=== PATIENT | female | born 1995 | race Caucasian/White ===

== ENCOUNTER 2017-07-28 14:33 | Emergency (ER) | payer OTHER, SELFPAY ==
[2017-07-28 14:34] VITALS: BP 135/81; PULSE 81; RESP 16; TEMP 36.8; O2SAT 100; BMI 23.2
[2017-07-28] MEDS: Metoclopramide 10 MG Tablet PO (16:08)
[2017-07-28 16:15] LABS: Color, Urine Yellow (Yellow); Glucose, Dipstick Normal (Normal); Leukocyte Esterase-Dipstick 25 /ul (Negative); Nitrite-Dipstick Negative (Negative); Occult Blood-Urine 10 /ul (Negative); Protein-Dipstick Negative (Negative); Urine Bilirubin Dipstick Negative (Negative); Urine Clarity Sl. Cloudy (Clear); Urine Urobilinogen Normal (Normal)
[2017-07-28 16:22] LABS: Ketone-Dipstick 150 mg/dl (Negative)
[2017-07-28 16:36] LABS: Bacteria RARE /hpf (None Seen); Mucous, Urine 2+ /hpf (<or=2+); Red Blood Cells-Urine 0-5 SEEN /hpf (0-5); Squamous Epithelial Cells - UA 0-5 SEEN /hpf (5-10); White Blood Cells 0-5 SEEN /hpf (0-5)
--- NOTE | 2017-07-28 17:11 | ED.DCSUM_ITS ---
- ER Visit Summary Date of Service: 07/28/17 Chief Complaint: Nausea and vomiting History of Present Illness: The patient is a 21 F presenting for evaluation secondary to nausea and vomiting patient states this been going on over the course approximately last 4 days. Patient states that she has been having difficulty with keeping food or liquids down. She does endorse some crampy abdominal pain and some subjective fevers. She denies any diarrhea. Of note the patient is early in . She denies any vaginal bleeding discharge or pelvic pain. She is . She has a appointment with OB tomorrow. Physical Examination: Vital signs are within normal limits, patient is afebrile. General: Patient is well-nourished well-developed and in no acute distress. Head: Normocephalic, atraumatic Eyes: Pupils equal round and reactive bilaterally, extra occular motion intact bialterally ENT: Moist mucous membranes Neck: Supple, no lymphadenopathy, no JVD, no meningismus CVS: Heart regular rate and rhythm, no murmurs, rubs or gallops, radial pulses 2 + bilaterally Resp: Respirations nondistressed, lung sounds clear bilaterally Abdomen: Soft, nontender, nondistended, no palpable masses, normal bowel sounds Back: Nontender Extremities: Nontender, atraumatic, active full range of motion, no peripheral edema Skin: warm, no rashes, no petechia Neuro: Alert and oriented x 4, CN 2-12 intact, no lateralizing neurological defecits Psyc: Normal affect Test Results: Urinalysis does show small ketones but no evidence of infection Emergency Department Course and Treatment: Patient presented secondary to nausea and vomiting and . She is not tachycardic, she has moist mucous membranes, she has normal blood pressure. Urinalysis while it shows mild ketones, I do not believe the patient is an hyperemesis at this point. Patient was given Reglan and a p.o. challenge. She will be discharged with a course of Reglan. She will follow-up with OB tomorrow. Disposition: Discharge Impression: 1. Nausea and vomiting 2. First trimester This note was generated with [employer] dictation software. It may contain incorrect words, spelling, and punctuation that were not noted in review of the chart prior to signing ED Disposition - Plan for ED Patient: Disposition: Home or Assisted Living Chief Complaint: Nausea/Vomiting Diagnosis: Nausea & vomiting Instructions: ED Nausea Vomiting Prescriptions: Metoclopramide [Reglan] 10 mg PO 4X/DAY PRN #20 tab PRN Reason: Headache Referrals: Manasa Collazo MD [STAFF PHYSICIAN] - 1 Day
[2017-07-28 17:16] VITALS: BP 130/70; PULSE 88; RESP 18; O2SAT 98
== END 2017-07-28 17:17 | disposition home or self-care (01) ==
PROVIDERS: Emergency Provider Emergency Medicine
DX: O21.9 Vomiting of pregnancy, unspecified (principal); Z3A.00 Weeks of gestation of pregnancy not specified
CPT/HCPCS: 81001; 99282

== ENCOUNTER → 2017-07-29 20:25 | Outpatient (CLI) | payer OTHER, SELFPAY ==
[2017-07-29 22:57] LABS: Chlamydia Trachomatis by PCR Negative (Negative); Neisserai gonorrhoeae by PCR Negative (Negative); Probe Check PASS; Sample Adequacy Control PASS; Specimen Processing Control PASS
[2017-08-03 11:34] LABS: HPV Reflexed? NOT INDICATED
== END ==
PROVIDERS: Visit Provider Obstetrics & Gynecology
DX: Z12.4 Encounter for screening for malignant neoplasm of cervix (principal); Z11.3 Encounter for screening for infections with a predominantly sexual mode of transmission
CPT/HCPCS: 87491; 87591; 88175; G0145

== ENCOUNTER → 2017-08-06 15:11 | Outpatient (CLI) | payer OTHER, SELFPAY ==
[2017-08-06 17:40] LABS: Absolute Lymphocyte Count 2.59 X10^3/ul (0.83-4.51); Absolute Neutrophil Count 6.8 X10^3/uL (2.0-7.7); Basophil# 0.02 X10^3/uL; Basophil% 0.2 % (0-1); Eosinophil# 0.05 X10^3/uL; Eosinophils% 0.5 % (0-5); Hemoglobin 11.6 g/dl (12.0-15.0); Lymphocyte # 2.59 X10^3/ul (4.0); Lymphocyte % 25.4 % (19-41); Mean Corp Hgb Conc 35.2 g/gl (32-36); Mean Corpuscular Hgb 30.1 pg (27.0-32.0); Mean Corpuscular Volume 85.7 fL (81-99); Mean Platelet Vol. 10.8 fl (6.2-12.0); Monocyte# 0.72 X10^3/uL; Monocyte% 7.1 % (0-10); Neutrophil % 66.6 % (47-70); Platelet Count 292 K/mm3 (150-450); RBC Distribution Width SD 36.2 fl (35.1-43.9); Red Blood Count 3.85 M/mm3 (4.2-5.4); White Blood Count 10.2 K/mm3 (4.4-11.0)
[2017-08-06 17:41] LABS: POSITIVE COUNT NO; POSITIVE DIFFERENTIAL NO; POSITIVE MORPHOLOGY NO
[2017-08-06 17:55] LABS: Color, Urine Yellow (Yellow); Glucose, Dipstick Normal (Normal); Ketone-Dipstick Negative (Negative); Leukocyte Esterase-Dipstick 100 /ul (Negative); Nitrite-Dipstick Negative (Negative); Occult Blood-Urine 10 /ul (Negative); Protein-Dipstick 15 mg/dl (Negative); Specific Gravity, Urine 1.015 (1.002-1.030); Urine Bilirubin Dipstick Negative (Negative); Urine Clarity Sl. Cloudy (Clear); Urine Urobilinogen Normal (Normal)
[2017-08-06 17:58] LABS: Thyroid Stim Hormone (TSH) 1.79 uIU/mL (0.358-3.74)
[2017-08-06 18:10] LABS: Amphetamine Urine VISTA NEGATIVE (<1000 ng/mL); Barbiturate Urine VISTA NEGATIVE (< 200 ng/mL); Benzodiazepine Urine VISTA NEGATIVE (< 200 ng/mL); Cocaine Urine VISTA NEGATIVE (< 300 ng/mL); Ecstacy Urine VISTA NEGATIVE (< 500 ng/mL); Methadone Urine VISTA NEGATIVE (< 300 ng/mL); PCP Urine VISTA NEGATIVE (< 25 ng/mL); THC Urine VISTA NEGATIVE (< 50 ng/mL); Vista UDS pH Range 6
[2017-08-07 02:55] LABS: Prenatal RPR NONREACTIVE (NONREACTIVE)
[2017-08-07 09:35] LABS: HIV - WCH Non-Reactive (Nonreactive); Rubella IgG 9.1 IU/mL
[2017-08-08 08:59] LABS: HEPATITIS B SURFACE AG Negative (Negative); Hep C Antibodies <0.1 s/co ratio (0.0-0.9)
== END ==
PROVIDERS: Visit Provider Obstetrics & Gynecology
DX: Z34.81 Encounter for supervision of other normal pregnancy, first trimester (principal)
CPT/HCPCS: 36415; 80307; 81002; 84443; 85025; 86703; 86762; 86803; 87340

== ENCOUNTER → 2017-12-22 16:17 | Outpatient (CLI) | payer OTHER, SELFPAY ==
[2017-12-22 17:47] LABS: Glucose Challenge Gest 1H 50g 106 mg/dL (70-140)
[2017-12-22 18:00] LABS: Hematocrit 29.3 % (37-47); Mean Corp Hgb Conc 34.1 g/gl (32-36); Mean Corpuscular Hgb 30.3 pg (27.0-32.0); Mean Corpuscular Volume 88.8 fL (81-99); Mean Platelet Vol. 10.6 fl (6.2-12.0); Platelet Count 326 K/mm3 (150-450); RBC Distribution Width CV 12.3 % (11.6-14.6); RBC Distribution Width SD 38.5 fl (35.1-43.9); White Blood Count 10.1 K/mm3 (4.4-11.0)
[2017-12-22 18:19] LABS: Scan Indicated on CBC? Y/N NO
== END ==
PROVIDERS: Visit Provider Obstetrics & Gynecology
DX: Z34.83 Encounter for supervision of other normal pregnancy, third trimester (principal)
CPT/HCPCS: 36415; 82950; 85027

== ENCOUNTER → 2018-02-23 20:38 | Outpatient (CLI) | payer OTHER, SELFPAY ==
[2018-02-23 22:03] LABS: Group B Strep DNA By PCR Negative (Negative); Internal Control PASS; Probe Check PASS; Specimen Processing Control PASS
== END ==
PROVIDERS: Visit Provider Obstetrics & Gynecology
DX: Z36.85 Encounter for antenatal screening for Streptococcus B (principal)
CPT/HCPCS: 87081; 87653

== ENCOUNTER 2018-03-14 02:45 | Inpatient (IN) | payer OTHER, MEDICAID, SELFPAY ==
[2018-03-14] MEDS: Lactated Ringers 1,000 ML 50 ML IV ×2 (03:15→05:58)
[2018-03-14 03:37] LABS: Hematocrit 38.9 % (37-47); Hemoglobin 13.2 g/dl (12.0-15.0); Mean Corp Hgb Conc 33.9 g/gl (32-36); Mean Corpuscular Hgb 30.3 pg (27.0-32.0); Mean Corpuscular Volume 89.2 fL (81-99); Mean Platelet Vol. 11.6 fl (6.2-12.0); Platelet Count 207 K/mm3 (150-450); RBC Distribution Width CV 13.3 % (11.6-14.6); RBC Distribution Width SD 43.4 fl (35.1-43.9); Red Blood Count 4.36 M/mm3 (4.2-5.4); White Blood Count 14.5 K/mm3 (4.4-11.0)
[2018-03-14 03:38] LABS: Scan Indicated on CBC? Y/N NO
[2018-03-14 03:43] VITALS: BMI 26.4
[2018-03-14] MEDS: Ondansetron 4 MG/2 ML Vial IV (03:56)
--- NOTE | 2018-03-14 07:23 | PCM.PN.OB ---
Subjective: Using nitrous oxide for pain management. Feeling contractions and pelvic pressure. Objective: Afeb VSS FHR tracing CAT 1. - Physical Exam General: Alert, Oriented x3, Cooperative, No apparent distress Lungs: Clear to auscultation, Normal air movement Cardiovascular: Regular rate, Regular Rhythm Abdomen: Soft, Non Tender, Non-Distended, Gravid, Appropriate for Gestational Age Extremities: No edema, No Calf Tenderness Skin: No rashes Neurological: Neuro grossly intact Psych/Mental Status: Normal Affect Comment: CE anterior rim 0 station Weight: 140 lb 3.2 oz Body Mass Index (BMI) 26.4 Laboratory Tests Past 24 Hrs 03/14/18 03/14/18 03:15 03:15 WBC 14.5 H RBC 4.36 Hgb 13.2 Hct 38.9 MCV 89.2 MCH 30.3 MCHC 33.9 RDW 13.3 RDW Differential 43.4 Plt Count 207 MPV 11.6 Blood Type A POSITIVE Antibody Screen NEGATIVE Medical Necessity - Tobacco Use Smoking Status: Never smoker Assessment/Plan AROM perfomred with clear fluid present. Will start pushing efforts. Expect .
[2018-03-14] MEDS: Oxytocin 30 units/NS 500 ml 30 UNITS/500 ML IV.SOLN 334 UNITS IV (07:40)
--- NOTE | 2018-03-14 07:48 | PCM.OB.VAG ---
- Problem List (1) Active labor Status: Acute Vaginal Delivery Maternal Presentation: Active Labor Presents at 39w3d ega in early active labor with uncomplicated . Amniotic Membrane Rupture Type: Artificial Rupture of Membrane time: 719 Amniotic Fluid Description: Clear Final SRINIVASAN: 03/18/18 Final SRINIVASAN Source: US <20 weeks Gestational age: 39 Weeks and 3 Days Date of Procedure: 03/14/18 Pre-Operative Diagnosis: Labor Post-Operative Diagnosis: same Surgery/ Procedure Performed: Spontaneous Vaginal Delivery Type of Anesthesia: None Description of Procedure: Progressed to FD then after AROM pushed over about 5 minutes to deliver a live male without complication. Apgars were 8/9. At delivery there was an active cry within the first 30 seconds. The mouth was suctioned. Delayed cord clamping was employed. The cord was clamped and cut. The placenta was delivered spontaneously intact with a centrally located 3VC. The uterus contracted well. Inspection revealed a small right periurethral first degree tear and a small posterior vaginal/perineal tear. Each were repaired with figure of eight sutures of 3-0 Rapide suture. Presentation: Vertex Placental Delivery Description: Spontaneous Placenta Disposition: [facility] Percentage of Placenta Abruption: 0 Cord Vessel Description: 3 Vessels Nuchal Cord Compression: Without compression Cord Entanglement: None Estimated Blood Loss: 300cc A gender: Male (1 minute): 8 (5 minute): 9 Episiotomy Description: None Laceration: Midline, Perineal Extension/lac, Vaginal Extension/lac, 1st degree Medications given after delivery: IV Pitocin Complications: None
--- NOTE | 2018-03-14 07:57 | DCINST_ITS ---
Discharge Diet: No Restrictions Discharge Activity: Return to Normal Activity, May Drive, May Shower Return to work on:: 05/14/18 May shower in (days): 0 May resume sexual activity in: 4 weeks Call your doctor if your incision/area has: Sudden Increased Bleeding, Increased Pain/ Swelling, Foul Smelling Discharge Call your doctor if you observe: Fever of 101 or Higher, Inability to urinate, Inability to have a bowel movement, Using more than one pad per hour, Shortness of breath, Chest pain, Calf discomfort, Uncontrolled pain Cleanse incision/area with: Soap & Water Additional Instructions: If you experience any of the following, contact your healthcare provider. * Bleeding that soaks a pad every hour for 2 hours * Fever 100.4 or higher * Unrelieved incision or abdominal pain * Swelling, redness, discharge or bleeding from your incision or episiotomy site * Your incision begins to separate * Problems urinating (including inability to urinate or burning while urinating). * Visual changes * Severe headache * Flu-like symptoms * Pain or redness in one of both of your breasts * Pain, warmth, tenderness or swelling in your legs, especially the calf area * Frequent nausea and vomiting * Symptoms of depression or anxiety If you experience any of the following, call 911 or go to the nearest Emergency Room. * Chest pain * Problems breathing * Seizure activity * Partial or complete paralysis of a body part, slurred speech, weakness or drooping of the face, or a sudden inability to walk or hold your balance Allergies/Adverse Reactions: Allergies No Known Allergies Allergy (Verified 03/14/18 00:39) Medications to take at Discharge Ferrous Sulfate [Iron] 1 tab PO DAILY 03/14/18 Ibuprofen 600 mg PO 4X/DAY #30 tab 03/14/18 Vits [Prenatabs FA ] 1 tab PO DAILY 03/14/18 The following prescriptions were given: Ibuprofen 600 mg PO 4X/DAY #30 tab Please Follow Up With: Manasa Collazo MD When: 6 weeks Primary Care Physician: Care Physician,No Primary [Primary Care Provider] - Test Results: Test results from this visit will be discussed in further detail at your follow- up appointment, if applicable. Proposed Discharge Date: 03/16/18
[2018-03-14] MEDS: Oxytocin 30 units/NS 500 ml 30 UNITS/500 ML IV.SOLN 167 UNITS IV (08:15)
[2018-03-14] MEDS: Ferrous Sulfate 325 MG Tablet PO (11:59)
[2018-03-14] MEDS: Ibuprofen 600 MG Tablet PO (11:59)
[2018-03-14 12:00] VITALS: BP 120/80; PULSE 90; RESP 16; TEMP 36.9
[2018-03-14 16:45] VITALS: BP 129/57; PULSE 70; RESP 16; TEMP 36.3
[2018-03-14 20:10] VITALS: BP 121/61; PULSE 80; RESP 18; TEMP 36.6; O2SAT 99
[2018-03-15 01:00] VITALS: BP 140/83; PULSE 80; RESP 16; TEMP 36.4
[2018-03-15 05:05] VITALS: BP 125/71; PULSE 74; RESP 16; TEMP 36.6
[2018-03-15 05:09] LABS: Hematocrit 36.7 % (37-47); Hemoglobin 12.4 g/dl (12.0-15.0); Mean Corp Hgb Conc 33.8 g/gl (32-36); Mean Corpuscular Hgb 30.7 pg (27.0-32.0); Mean Corpuscular Volume 90.8 fL (81-99); Mean Platelet Vol. 11.3 fl (6.2-12.0); Platelet Count 202 K/mm3 (150-450); RBC Distribution Width CV 13.5 % (11.6-14.6); RBC Distribution Width SD 44.8 fl (35.1-43.9); Red Blood Count 4.04 M/mm3 (4.2-5.4); White Blood Count 13.4 K/mm3 (4.4-11.0)
[2018-03-15 05:12] LABS: Scan Indicated on CBC? Y/N NO
--- NOTE | 2018-03-15 07:38 | PCM.PN.OB ---
Patient Problems: Active and Suspected Problems Active labor (Acute) Subjective: PPD#1 Doing well. Minimal pain. Nursing better now. Would like to go home later today if baby is ok for dischg. - Physical Exam General: Alert, Oriented x3, Cooperative, No apparent distress HEENT: Atraumatic Neck: Supple Abdomen: Soft - Fundus firm NT at approx 1-2 cm inf to umbilicus Neurological: Cranial nerves II-XII grossly intact Psych/Mental Status: Normal Affect Vital Signs Temp Pulse Resp BP Pulse Ox 97.8 F 74 16 125/71 H 99 03/15/18 05:05 03/15/18 05:05 03/15/18 05:05 03/15/18 05:05 03/14/18 20:10 Oxygen Delivery Method Room Air Weight: 63.594 kg Body Mass Index (BMI) 26.4 Laboratory Tests Past 24 Hrs 03/15/18 04:50 WBC 13.4 H RBC 4.04 L Hgb 12.4 Hct 36.7 L MCV 90.8 MCH 30.7 MCHC 33.8 RDW 13.5 RDW Differential 44.8 H Plt Count 202 MPV 11.3 Medical Necessity - Tobacco Use Smoking Status: Never smoker Assessment/Plan All Active Problems Active labor (Acute) PPD#1 Primip Stable pp. Requesting dischg today. D/C home if baby is released, hold dischg if baby needs to stay. continue care.
[2018-03-15] MEDS: Ferrous Sulfate 325 MG Tablet PO (08:34)
[2018-03-15 08:35] VITALS: BP 128/80; PULSE 65; RESP 16; TEMP 36.5; O2SAT 96
[2018-03-15] MEDS: Prenatal Vits Tablet 1 TABLET PO (09:49)
[2018-03-15] MEDS: Ibuprofen 600 MG Tablet PO (09:49)
[2018-03-15 13:58] VITALS: BP 117/71; PULSE 69; RESP 16; TEMP 36.2; O2SAT 99
== END 2018-03-15 18:50 | disposition home or self-care (01) | DRG 807 ==
LOC: WPOUT 02:48
PROVIDERS: Admitting Provider Obstetrics & Gynecology; Visit Provider Obstetrics & Gynecology
DX: O36.0130 Maternal care for anti-D [Rh] antibodies, third trimester, not applicable or unspecified (principal); Z37.0 Single live birth; O99.02 Anemia complicating childbirth; D64.9 Anemia, unspecified; O71.82 Other specified trauma to perineum and vulva; O70.0 First degree perineal laceration during delivery; Z3A.39 39 weeks gestation of pregnancy
CPT/HCPCS: 59050; 85027; 86850; 86900; 99218; J7120; G0378; J2405

== ENCOUNTER → 2018-07-26 17:22 | Outpatient (CLI) | payer MEDICAID, SELFPAY ==
[2018-07-26 20:35] LABS: Chlamydia Trachomatis by PCR Negative (Negative); Neisserai gonorrhoeae by PCR Negative (Negative); Probe Check PASS; Sample Adequacy Control PASS; Specimen Processing Control PASS
[2018-07-29 13:21] LABS: HPV Reflexed? NOT INDICATED
== END ==
PROVIDERS: Visit Provider Obstetrics & Gynecology
DX: Z34.81 Encounter for supervision of other normal pregnancy, first trimester (principal); Z12.4 Encounter for screening for malignant neoplasm of cervix; Z11.3 Encounter for screening for infections with a predominantly sexual mode of transmission
CPT/HCPCS: 87491; 87591; 88175; G0145

== ENCOUNTER → 2018-08-23 16:37 | Outpatient (CLI) | payer MEDICAID, SELFPAY ==
[2018-08-23 17:39] LABS: Absolute Lymphocyte Count 1.38 X10^3/ul (0.83-4.51); Absolute Neutrophil Count 8.5 X10^3/uL (2.0-7.7); Basophil# 0.01 X10^3/uL; Basophil% 0.1 % (0-1); Eosinophil# 0.05 X10^3/uL; Eosinophils% 0.5 % (0-5); Hematocrit 38.1 % (37-47); Hemoglobin 13.1 g/dl (12.0-15.0); Lymphocyte # 1.38 X10^3/ul (4.0); Lymphocyte % 13.5 % (19-41); Mean Corp Hgb Conc 34.4 g/gl (32-36); Mean Corpuscular Hgb 29.7 pg (27.0-32.0); Mean Corpuscular Volume 86.4 fL (81-99); Mean Platelet Vol. 10.1 fl (6.2-12.0); Monocyte# 0.34 X10^3/uL; Monocyte% 3.3 % (0-10); Neutrophil # 8.47 X10^3/uL (2.7-7.7); Neutrophil % 82.5 % (47-70); Platelet Count 302 K/mm3 (150-450); RBC Distribution Width CV 12.6 % (11.6-14.6); RBC Distribution Width SD 39.6 fl (35.1-43.9); Red Blood Count 4.41 M/mm3 (4.2-5.4); White Blood Count 10.3 K/mm3 (4.4-11.0)
[2018-08-23 17:40] LABS: POSITIVE COUNT NO; POSITIVE DIFFERENTIAL NO; POSITIVE MORPHOLOGY NO
[2018-08-23 17:54] LABS: Amphetamine Urine VISTA NEGATIVE (<1000 ng/mL); Barbiturate Urine VISTA NEGATIVE (< 200 ng/mL); Benzodiazepine Urine VISTA NEGATIVE (< 200 ng/mL); Cocaine Urine VISTA NEGATIVE (< 300 ng/mL); Ecstacy Urine VISTA NEGATIVE (< 500 ng/mL); Glucose, Dipstick Normal (Normal); Ketone-Dipstick 15 mg/dl (Negative); Leukocyte Esterase-Dipstick Negative /ul (Negative); Methadone Urine VISTA NEGATIVE (< 300 ng/mL); Nitrite-Dipstick Negative (Negative); Occult Blood-Urine Negative /ul (Negative); PCP Urine VISTA NEGATIVE (< 25 ng/mL); Protein-Dipstick Negative (Negative); Specific Gravity, Urine 1.015 (1.002-1.030); THC Urine VISTA NEGATIVE (< 50 ng/mL); Urine Bilirubin Dipstick Negative (Negative); Urine Urobilinogen Normal (Normal); Vista UDS pH Range 7
[2018-08-23 17:56] LABS: Color, Urine Yellow (Yellow); Thyroid Stim Hormone (TSH) 1.24 uIU/mL (0.358-3.74); Urine Clarity Cloudy (Clear)
[2018-08-23 18:35] LABS: COTININE Drug Screen Negative (<200 ng/mL)
[2018-08-23 19:00] LABS: HIV - WCH Non-Reactive (Nonreactive); Rubella IgG > 500.0 IU/mL
[2018-08-25 11:21] LABS: HEPATITIS B SURFACE AG Negative (Negative); Hep C Antibodies <0.1 s/co ratio (0.0-0.9)
[2018-08-27 02:05] LABS: Prenatal RPR NONREACTIVE (NONREACTIVE)
== END ==
PROVIDERS: Visit Provider Obstetrics & Gynecology
DX: Z34.81 Encounter for supervision of other normal pregnancy, first trimester (principal)
CPT/HCPCS: 36415; 80307; 81002; 84443; 85025; 86703; 86762; 86803; 87340

== ENCOUNTER → 2018-11-30 15:38 | Outpatient (CLI) | payer MEDICAID, SELFPAY ==
[2018-11-30 17:21] LABS: Hematocrit 30.2 % (37-47); Hemoglobin 10.5 g/dl (12.0-15.0); Mean Corp Hgb Conc 34.8 g/gl (32-36); Mean Corpuscular Volume 89.1 fL (81-99); Mean Platelet Vol. 9.8 fl (6.2-12.0); Platelet Count 274 K/mm3 (150-450); RBC Distribution Width CV 13.1 % (11.6-14.6); RBC Distribution Width SD 42.3 fl (35.1-43.9); Red Blood Count 3.39 M/mm3 (4.2-5.4)
[2018-11-30 17:29] LABS: Scan Indicated on CBC? Y/N NO
[2018-11-30 17:37] LABS: Glucose Challenge Gest 1H 50g 107 mg/dL (70-140)
== END ==
PROVIDERS: Visit Provider Obstetrics & Gynecology
DX: Z34.82 Encounter for supervision of other normal pregnancy, second trimester (principal)
CPT/HCPCS: 36415; 82950; 85027

== ENCOUNTER → 2019-02-03 17:10 | Outpatient (CLI) | payer MEDICAID, SELFPAY | PROVIDERS: Visit Provider Obstetrics & Gynecology | DX: Z36.85 Encounter for antenatal screening for Streptococcus B (principal) | CPT/HCPCS: 87081 ==

== ENCOUNTER 2019-02-16 12:55 | Inpatient (IN) | payer MEDICAID, SELFPAY ==
[2019-02-16] MEDS: Lactated Ringers 1,000 ML 50 ML IV (13:15)
[2019-02-16 13:24] VITALS: BMI 28.1
[2019-02-16 13:41] LABS: Absolute Lymphocyte Count 2.25 X10^3/uL (0.83-4.51); Absolute Neutrophil Count 8.6 X10^3/uL (2.0-7.7); Basophil# 0.03 X10^3/uL; Basophil% 0.2 % (0-1); Eosinophil# 0.09 X10^3/uL; Eosinophils% 0.7 % (0-5); Hematocrit 34.1 % (37-47); Hemoglobin 11.7 g/dL (12.0-15.0); Lymphocyte # 2.25 X10^3/ul (4.0); Lymphocyte % 18.7 % (19-41); Mean Corp Hgb Conc 34.3 g/dL (32-36); Mean Corpuscular Hgb 31.9 pg (27.0-32.0); Mean Corpuscular Volume 92.9 fL (81-99); Mean Platelet Vol. 10.6 fl (6.2-12.0); Monocyte# 0.91 X10^3/uL; Monocyte% 7.6 % (0-10); NRBC Flagged by Analyzer 0 % (0-5); Neutrophil # 8.64 X10^3/uL (2.7-7.7); Platelet Count 250 K/mm3 (150-450); RBC Distribution Width CV 13.2 % (11.6-14.6); RBC Distribution Width SD 44.6 fl (35.1-43.9); Red Blood Count 3.67 M/mm3 (4.2-5.4)
--- NOTE | 2019-02-16 13:41 | HP.PCM_ITS ---
History and Physical Date of Admission: 02/16/19 HISTORY OF PRESENT ILLNESS Bella Vogel, a 22 year old female 2 Para 1001 at 38w6D who presents for: -- Spontaneous SROM at home, clear fluid, occasional mild contractions ALLERGIES: No Known Drug Allergies MEDICATIONS HISTORY: Current medications prescribed by our practice are: ferrous sulfate 325 mg (65 mg iron) tablet + DHA 28 mg iron- 975 mcg-200 mg combo pack Prilosec OTC 20 mg tablet,delayed release promethazine 12.5 mg tablet Zofran 4 mg tablet Zoloft 50 mg tablet REVIEW OF SYSTEMS: GENERAL - Denies fever, or chills SKIN - Denies skin changes EYES - Denies visual changes EARS - Denies difficulty hearing NOSE - Denies nasal congestion or bleeding MOUTH - Denies sore throat or difficulty swallowing NECK - Denies pain or swelling RESPIRATORY - Denies shortness of breath or wheezing CARDIOVASCULAR - Denies palpitations or chest pain GASTROINTESTINAL - nausea GENITOURINARY - Denies dysuria, frequency of urination, incontinence of urine MUSCULOSKELETAL - Denies joint or muscle pain NEUROLOGICAL - Denies localized numbness or weakness PSYCHIATRIC - Denies depression or anxiety ENDOCRINE - Denies heat or cold intolerance, weight loss or gain HEMATO-IMMUNOLOGIC - Denies excesive bleeding with cuts PAST HISTORY: Breast/Ovarian/Colon Cancers - Denies Infections - varicella vaccine Illnesses - none Accidents - no injuries of consequence History of Abnormal PAPS - Denies Hospitalizations - see surgery MENSTRUAL HISTORY: LMP Known?- DefiniteAmount/Duration - 7-9, Frequency - variable days, LMP - 05/12/18, Age Onset Menarche - 16 PAST PREGNANCIES: Total Pregnancies - 2; Full Term Pregnancies - 1; Premature - 0; Abortions, Induced - 0; Abortions, Spontaneous - 0; Ectopics - 0; Multiple Births - 0; Living Children - 1 SOCIAL HISTORY: Alcohol Use - denies drinking Smoking - Never Diet - moderate, balanced diet Lifestyle - moderate stress lifestyle and Exercise - none Seat Belt Use - always Employer - [employer] Illicit Drug Use - denies use of street drugs Sexual Activity - Residence - lives with Place of - [place], [place] Hours Worked - 40 Spouse-Sig Other Name - Donnie Lawrence Spouse-Sig Other Occupation - IT - [employer] Children Name(s) - Manohar ('18, DS) Control - PHYSICAL EXAMINATION AVSS CONSTITUTIONAL - NAD, well nourished, and well developed HEENT - Normocephalic, PERRLA, EOMI NECK - no nuchal rigidity LUNGS - clear to auscultation CARDIAC - normal s1, normal s2, no s3 BREAST - no dominant masses, no tenderness, no axillary adenopathy, no nipple discharge and no skin changes ABDOMEN - Term Gravis, no masses, no tenderness EXTREMITIES - No edema or calf tenderness; dtrS 2+ bilaterally upper and lower extremities NEUROLOGICAL - Cranial nerves II-XII grossly intact PSYCHIATRIC - A and O to time, place, person, mood; flat affect DETAILED PELVIC EXAM External Genitial Vagina - non-tender without lesions Urethra/Urethral Meatus - non-tender Bladder - non-tender Vagina - vaginal reyez pink and moist without loss of rugae and no evidence of atropy Cervix - without cervical motion tenderness and has normal size and features without evident lesions; dilattion / per RN exam Uterus - Term gravid, soft, non tender Adnexa - clear without massess or tenderness Pap - deferred FHTs/Contractions Reassuring Cat 1 FHTs; Irregular contractions, palpate mild ASSESSMENT: Term SROM Early labor GBS negative Cat 1 FHTs PLAN: Admit to L&D Expectant management
--- NOTE | 2019-02-16 20:04 | PCM.PN.OB ---
Subjective: Sitting up in rocking chair, states conrtractions getting stronger, but manageable; begnning to feel mild rectal pressure during contactions only desires low intervention labor and Objective: AVSS FHR 130 with accels per IA UCs Q 3-4 minutes lasting 60 seconds per palpation VE: per patient request /-1, soft, anterior; amniotic fluid small,clear - Physical Exam General: Alert, Oriented x3, Cooperative Neck: Supple Lungs: Clear to auscultation Cardiovascular: Regular rate, Regular Rhythm Abdomen: Bowel Sounds Present, Soft, Non Tender, Non-Distended, Gravid Extremities: No edema, Capillary Refill Less than 3 Seconds, No Calf Tenderness Skin: No rashes, No breakdown Neurological: Cranial nerves II-XII grossly intact, Deep Tendon Reflexes 2+/4 and Symmetrical Psych/Mental Status: Flat Affect, Alert and oriented to time, place, person, mood and affect Weight: 149 lb Body Mass Index (BMI) 28.1 Laboratory Tests Past 24 Hrs 02/16/19 02/16/19 13:15 13:15 WBC 12.0 H RBC 3.67 L Hgb 11.7 L Hct 34.1 L MCV 92.9 MCH 31.9 MCHC 34.3 RDW Std Deviation 44.6 H RDW Coeff of Valentino 13.2 Plt Count 250 MPV 10.6 Immature Gran % (Auto) 0.800 Neut % (Auto) 72.0 H Lymph % (Auto) 18.7 L Cowley % (Auto) 7.6 Eos % (Auto) 0.7 Baso % (Auto) 0.2 Absolute Neuts (auto) 8.6 H Absolute Lymphs (auto) 2.25 Nucleated RBC % 0 Blood Type A POSITIVE Antibody Screen NEGATIVE Medical Necessity - Tobacco Use Smoking Status: Never smoker Assessment/Plan All Active Problems Active labor (Acute) Assessment: Active vs. early labor SROM x 10 hours Cat 1 FHTs per IA Inadequate contraction pattern Plan: Encouraged movement, peanut ball, exercise ball Discussion re: augmentation of labor with pitocin vs. expectant management Patient agrees to pitocin augmentation if contraction frequency has not increased by 2200 Return to continuous EFM Updated Dr. Christensen
[2019-02-16] MEDS: 0.9% Saline Lock 10 ML Syringe IV (21:06)
[2019-02-16] MEDS: Ondansetron 4 MG/2 ML Vial IV (21:06)
[2019-02-16] MEDS: Oxytocin 30 units/NS 500 ml 30 UNITS/500 ML IV.SOLN IV (22:00)
--- NOTE | 2019-02-16 22:16 | PN.OBGYN_ITS ---
Subjective: States tolerating labor well, has agreed to pitocin augmentation Objective: AVSS FHTS: 125 baseline, moderate variability with accels UCs: Q 2-4 minutes, palpate moderate, resting tone soft Amniogtic fluid: small, clear Abdomen: soft, non tender Pitocin at 2 mu - Physical Exam Weight: 149 lb Body Mass Index (BMI) 28.1 Laboratory Tests Past 24 Hrs 02/16/19 02/16/19 13:15 13:15 WBC 12.0 H RBC 3.67 L Hgb 11.7 L Hct 34.1 L MCV 92.9 MCH 31.9 MCHC 34.3 RDW Std Deviation 44.6 H RDW Coeff of Valentino 13.2 Plt Count 250 MPV 10.6 Immature Gran % (Auto) 0.800 Neut % (Auto) 72.0 H Lymph % (Auto) 18.7 L Emanuel % (Auto) 7.6 Eos % (Auto) 0.7 Baso % (Auto) 0.2 Absolute Neuts (auto) 8.6 H Absolute Lymphs (auto) 2.25 Nucleated RBC % 0 Blood Type A POSITIVE Antibody Screen NEGATIVE Medical Necessity - Tobacco Use Smoking Status: Never smoker Assessment/Plan All Active Problems Active labor (Acute) Assessment: Early labor Category 1 FHTs 11 hours post SROM Inadequate contraction pattern Plan: Continuous EFM Increase pitocin by 2 mu Q 30 minutes to achieve adequate contraction pattern May offer nitrous, IV pain medication or epidural at patient request
[2019-02-16] MEDS: Mag Hydrox/Al Hydrox/Simeth 30 ML UDC PO (22:25)
[2019-02-17] MEDS: Oxytocin 30 units/NS 500 ml 30 UNITS/500 ML IV.SOLN 334 UNITS IV (01:04)
--- NOTE | 2019-02-17 01:43 | OP.PCM_ITS ---
<Manasa Collazo - Last Filed: 02/17/19 12:36> Vaginal Delivery Maternal Presentation: Spontaneous Rupture of Membranes Amniotic Membrane Rupture Type: Spontaneous at home Amniotic Fluid Description: Clear Final SRINIVASAN Source: US <20 weeks Presentation: Vertex, MIROSLAVA Placental Delivery Description: Spontaneous Placenta [facility] Cord Vessel Description: 3 Vessels Nuchal Cord Compression: Without compression Cord Entanglement: Around neck x 1, loose A gender: Female Episiotomy Description: None Laceration: Midline, Perineal Extension/lac, Vaginal Extension/lac, 1st degree Medications given after delivery: IV Pitocin Complications: None <RichardFilomena - Last Filed: 02/17/19 13:25> Vaginal Delivery Maternal Presentation: Spontaneous Rupture of Membranes Amniotic Membrane Rupture Type: Spontaneous at home Rupture of Membrane time: 02/16/19 1130 Amniotic Fluid Description: Clear Final SRINIVASAN Source: US <20 weeks Date of Procedure: 02/17/19 Pre-Operative Diagnosis: Term SROM Post-Operative Diagnosis: Surgery/ Procedure Performed: Spontaneous Vaginal Delivery Type of Anesthesia: Local with 1% lidocaine Description of Procedure: Progressed rapidly to complete, pushed well, and delivered a vigorous female i nfant OA to MIROSLAVA; membranes around face and neck easily removed, nuchal cord x 1, delivered through, shoulders followed easily; placed on mother's abdomen, mouth and nares suctioned; APGARS 8/9 cord clamped x 2, and cut by FOB; placenta delivered spontaneiously, Marino mechanism, intact, 3-vessel cord, central insertion; small midline first degree laceration noted at introitus, repaired, good hemostasis obtained; EBL 250 Placenta [facility] Estimated Blood Loss: 250 A gender: Female (1 minute): 8 (5 minute): 9 Medications given after delivery: IV Pitocin <Kristofer Christensen - Last Filed: 02/17/19 18:05> Vaginal Delivery Description of Procedure: Delivery attended by Dr. Christensen.
--- NOTE | 2019-02-17 02:28 | DCINST_ITS ---
<Filomena Richard - Last Filed: 02/17/19 02:28> Discharge Diet: No Restrictions Discharge Activity: May Shower, May Take a Tub Bath May resume sexual activity in: 4-6 weeks Lifting Restrictions: 10-20 pounds Call your doctor if you observe: Fever of 101 or Higher, Inability to urinate, Inability to have a bowel movement, Using more than one pad per hour, Shortness of breath, Dizziness, Chest pain, Calf discomfort, Uncontrolled pain Additional Instructions: If you experience any of the following, contact your healthcare provider. * Bleeding that soaks a pad every hour for 2 hours * Fever 100.4 or higher * Unrelieved incision or abdominal pain * Swelling, redness, discharge or bleeding from your incision or episiotomy site * Your incision begins to separate * Problems urinating (including inability to urinate or burning while urinating). * Visual changes * Severe headache * Flu-like symptoms * Pain or redness in one of both of your breasts * Pain, warmth, tenderness or swelling in your legs, especially the calf area * Frequent nausea and vomiting * Symptoms of depression or anxiety If you experience any of the following, call 911 or go to the nearest Emergency Room. * Chest pain * Problems breathing * Seizure activity * Partial or complete paralysis of a body part, slurred speech, weakness or drooping of the face, or a sudden inability to walk or hold your balance Allergies/Adverse Reactions: Allergies No Known Allergies Allergy (Verified 03/14/18 00:39) Medications to take at Discharge Ferrous Sulfate [Iron] 1 tab PO DAILY 03/14/18 Vits [Prenatabs FA ] 1 tab PO DAILY 03/14/18 Omeprazole Magnesium [Prilosec Otc] 20 mg PO DAILY 02/16/19 Sertraline HCl [Zoloft] 50 mg PO DAILY 02/16/19 Ibuprofen [Motrin] 600 mg PO Q6H PRN PRN #30 tab 02/17/19 The following prescriptions were given: Ibuprofen [Motrin] 600 mg PO Q6H PRN PRN #30 tab PRN Reason: Mild Pain (-08/15) Transmission Status: Pending to [facility]/pharmacy #[id number] Please Follow Up With: Filomena Richard CNM When: 6 weeks Primary Care Physician: Care Physician,No Primary [Primary Care Provider] - Test Results: Test results from this visit will be discussed in further detail at your follow- up appointment, if applicable. Proposed Discharge Date: 02/20/19 <Manasa Collazo - Last Filed: 02/17/19 12:49> Additional Activity Instructions:: Nothing in the vagina for 4-6 weeks. You may return to work/school in 6 weeks. Additional Instructions: If you experience any of the following, contact your healthcare provider. * Bleeding that soaks a pad every hour for 2 hours * Fever 100.4 or higher * Unrelieved abdominal pain * Problems urinating (including inability to urinate or burning while urinating). * Visual changes * Severe headache * Flu-like symptoms * Pain or redness in one of both of your breasts * Pain, warmth, tenderness or swelling in your legs, especially the calf area * Frequent nausea and vomiting * Symptoms of depression or anxiety If you experience any of the following, call 911 or go to the nearest Emergency Room. * Chest pain * Problems breathing Test Results: Test results from this visit will be discussed in further detail at your follow- up appointment, if applicable.
[2019-02-17 08:00] VITALS: BP 111/70; PULSE 67; RESP 16; TEMP 36.9
[2019-02-17] MEDS: Sertraline 50 MG Tablet PO (10:21)
[2019-02-17] MEDS: Pantoprazole Sodium 20 MG Tablet PO (10:21)
--- NOTE | 2019-02-17 11:45 | PN.OBGYN_ITS ---
Subjective: Feeling well, perineal discomfort well controlled with ice, ibuprofen; nursing well - Physical Exam General: Alert, Oriented x3, Cooperative HEENT: Atraumatic, PERRLA, EOMI Oral: Moist Mucosa Neck: Supple Lungs: Clear to auscultation, Normal air movement Cardiovascular: Regular rate, Regular Rhythm Abdomen: Bowel Sounds Present, Soft, Non Tender, Non-Distended - Fundus U/2, midline, lochia scant, Passing Flatus Extremities: No edema, No Calf Tenderness, Peripheral Pulses Normal Skin: Ulcer/ Wound - Midline tear at introitus well approximated, no erythema, wamrth, bleeding or oozing, some brusing, mild swelling Neurological: Cranial nerves II-XII grossly intact, Deep Tendon Reflexes 2+/4 and Symmetrical Psych/Mental Status: Appropriate, Flat Affect Vital Signs Temp Pulse Resp BP 98.4 F 67 16 111/70 02/17/19 08:00 02/17/19 08:00 02/17/19 08:00 02/17/19 08:00 Weight: 149 lb Body Mass Index (BMI) 28.1 Intake and Output for Last 24 Hours 02/15/19 02/16/19 02/17/19 23:59 23:59 23:59 Intake Total 5.4 / 5.4 1101.36 / 1101.36 Output Total 200 / 200 Balance 5.4 / 5.4 901.36 / 901.36 Laboratory Tests Past 24 Hrs 02/16/19 02/16/19 13:15 13:15 WBC 12.0 H RBC 3.67 L Hgb 11.7 L Hct 34.1 L MCV 92.9 MCH 31.9 MCHC 34.3 RDW Std Deviation 44.6 H RDW Coeff of Valentino 13.2 Plt Count 250 MPV 10.6 Immature Gran % (Auto) 0.800 Neut % (Auto) 72.0 H Lymph % (Auto) 18.[address] [place] % (Auto) 7.6 Eos % (Auto) 0.7 Baso % (Auto) 0.2 Absolute Neuts (auto) 8.6 H Absolute Lymphs (auto) 2.25 Nucleated RBC % 0 Blood Type A POSITIVE Antibody Screen NEGATIVE Medical Necessity - Tobacco Use Smoking Status: Never smoker Assessment/Plan All Active Problems Active labor (Acute) Assessment: Day of delivery, feeling well, perineal discomfort well controlled; undecided about contraception, will revisit at post visit Normal involution well History of depression/anxiety, poor medication adherence Plan: Discussed self care Continue routine care Social work consult per nursing
[2019-02-17 12:00] VITALS: BP 101/61; PULSE 74; RESP 18; TEMP 36.4
[2019-02-17 15:38] VITALS: BP 108/64; PULSE 78; RESP 16; TEMP 36.4
[2019-02-17 21:00] VITALS: BP 116/74; PULSE 72; RESP 18; TEMP 36.8; O2SAT 98
[2019-02-18 03:17] VITALS: BP 108/68; PULSE 74; RESP 16; TEMP 37.1; O2SAT 97
[2019-02-18] MEDS: Acetaminophen 500 MG Tablet 1000 MG PO (06:53)
[2019-02-18 07:30] VITALS: BP 103/68; PULSE 66; RESP 18; TEMP 36.6; O2SAT 97
--- NOTE | 2019-02-18 08:29 | PCM.PN.OB ---
Subjective: PPD#2 Doing well. No concerns voiced Intermittent eye contact, watching TV. Denies any pp depressive sx. - Physical Exam General: Alert, Oriented x3, Cooperative, No apparent distress HEENT: Atraumatic, EOMI Abdomen: Soft - Fundus firm NT at inferior to umbilicus Neurological: Cranial nerves II-XII grossly intact Psych/Mental Status: Normal Affect Vital Signs Temp Pulse Resp BP Pulse Ox 98.7 F 74 16 108/68 97 02/18/19 03:02/18/19 03:02/18/19 03:02/18/19 03:02/18/19 03:17 Oxygen Delivery Method Room Air Weight: 67.585 kg Body Mass Index (BMI) 28.1 Intake and Output for Last 24 Hours 02/16/19 02/17/19 02/18/19 23:59 23:59 23:59 Intake Total 5.4 / 5.4 1101.36 / 1101.36 Output Total 200 / 200 Balance 5.4 / 5.4 901.36 / 901.36 Medical Necessity - Tobacco Use Smoking Status: Never smoker Assessment/Plan All Active Problems Active labor (Acute) PPD#2 Stable pp. DIschg home today. RTO in 6 wk for PP check.
[2019-02-18 14:25] VITALS: BP 107/71; PULSE 68; RESP 18; TEMP 36.9; O2SAT 98
== END 2019-02-18 16:50 | disposition home or self-care (01) | DRG 560 ==
LOC: WPOUT 12:56 → WP 13:00
PROVIDERS: Advanced Practice Midwife; Admitting Provider Obstetrics & Gynecology; Referring Provider Obstetrics & Gynecology; Visit Provider Obstetrics & Gynecology
DX: O42.02 Full-term premature rupture of membranes, onset of labor within 24 hours of rupture (principal); Z37.0 Single live birth; O70.0 First degree perineal laceration during delivery; O69.81X0 Labor and delivery complicated by cord around neck, without compression, not applicable or unspecified; Z3A.38 38 weeks gestation of pregnancy
CPT/HCPCS: 59025; 59050; 85025; 86850; 86900; 86901; 99218; J7120; A4216; G0378; J2405

== ENCOUNTER → 2019-12-13 11:38 | Outpatient (CLI) | payer MEDICAID, SELFPAY ==
[2019-12-13 14:00] LABS: Absolute Lymphocyte Count 2.23 X10^3/uL (0.83-4.51); Absolute Neutrophil Count 5.5 X10^3/uL (2.0-7.7); Basophil# 0.02 X10^3/uL; Basophil% 0.2 % (0-1); Eosinophil# 0.08 X10^3/uL; Hematocrit 36.6 % (37-47); Hemoglobin 12.6 g/dL (12.0-15.0); Lymphocyte # 2.23 X10^3/ul (4.0); Lymphocyte % 26.7 % (19-41); Mean Corp Hgb Conc 34.4 g/dL (32-36); Mean Corpuscular Hgb 30.2 pg (27.0-32.0); Mean Corpuscular Volume 87.8 fL (81-99); Mean Platelet Vol. 10.2 fl (6.2-12.0); Monocyte# 0.53 X10^3/uL; Monocyte% 6.3 % (0-10); NRBC Flagged by Analyzer 0 % (0-5); Neutrophil # 5.48 X10^3/uL (2.7-7.7); Neutrophil % 65.6 % (47-70); Platelet Count 304 K/mm3 (150-450); RBC Distribution Width CV 12.1 % (11.6-14.6); RBC Distribution Width SD 38.3 fl (35.1-43.9); Red Blood Count 4.17 M/mm3 (4.2-5.4); White Blood Count 8.4 K/mm3 (4.4-11.0)
[2019-12-13 14:13] LABS: Color, Urine Yellow (Yellow); Glucose, Dipstick Normal (Normal); Ketone-Dipstick Negative (Negative); Leukocyte Esterase-Dipstick 25 /ul (Negative); Nitrite-Dipstick Negative (Negative); Occult Blood-Urine Negative /ul (Negative); Protein-Dipstick 15 mg/dl (Negative); Urine Bilirubin Dipstick Negative (Negative); Urine Clarity Sl. Cloudy (Clear); Urine Urobilinogen Normal (Normal)
[2019-12-13 14:19] LABS: Amphetamine Urine VISTA NEGATIVE (<1000 ng/mL); Barbiturate Urine VISTA NEGATIVE (< 200 ng/mL); Benzodiazepine Urine VISTA NEGATIVE (< 200 ng/mL); Cocaine Urine VISTA NEGATIVE (< 300 ng/mL); Ecstacy Urine VISTA NEGATIVE (< 500 ng/mL); Methadone Urine VISTA NEGATIVE (< 300 ng/mL); PCP Urine VISTA NEGATIVE (< 25 ng/mL); THC Urine VISTA NEGATIVE (< 50 ng/mL); Vista UDS pH Range 7
[2019-12-13 14:25] LABS: Thyroid Stim Hormone (TSH) 1.91 uIU/mL (0.358-3.74)
[2019-12-13 14:55] LABS: HIV - WCH Non-Reactive (Nonreactive); Hepatitis B Surface Antigen Non-Reactive (Nonreactive); Hepatitis C Antibody Non-Reactive (Nonreactive); Rubella IgG 231.1 IU/mL
[2019-12-13 17:17] LABS: Chlamydia Trachomatis by PCR Negative (Negative); Neisserai gonorrhoeae by PCR Negative (Negative); Probe Check PASS; Sample Adequacy Control PASS; Specimen Processing Control PASS
[2019-12-15 01:39] LABS: Prenatal RPR NONREACTIVE (NONREACTIVE)
== END ==
PROVIDERS: Visit Provider Obstetrics & Gynecology
DX: Z34.82 Encounter for supervision of other normal pregnancy, second trimester (principal)
CPT/HCPCS: 36415; 80307; 81002; 84443; 85025; 86703; 86762; 86803; 87340; 87491; 87591

== ENCOUNTER → 2020-04-25 11:08 | Outpatient (CLI) | payer MEDICAID, SELFPAY ==
[2020-01-16 14:08] VITALS: BMI 27.6
[2020-04-25 12:39] LABS: Hematocrit 33.4 % (37-47); Mean Corp Hgb Conc 32.9 g/dL (32-36); Mean Corpuscular Hgb 29.6 pg (27.0-32.0); Mean Platelet Vol. 10.3 fl (6.2-12.0); Platelet Count 291 K/mm3 (150-450); RBC Distribution Width CV 12.7 % (11.6-14.6); RBC Distribution Width SD 42.2 fl (35.1-43.9); Red Blood Count 3.71 M/mm3 (4.2-5.4); White Blood Count 8.6 K/mm3 (4.4-11.0)
[2020-04-25 12:45] LABS: Glucose Challenge Gest 1H 50g 96 mg/dL (70-140)
== END ==
PROVIDERS: PCP Internal Medicine; Visit Provider Obstetrics & Gynecology
DX: Z34.83 Encounter for supervision of other normal pregnancy, third trimester (principal)
CPT/HCPCS: 36415; 82950; 85027

== ENCOUNTER 2020-05-25 17:27 | Outpatient (CLI) | payer MEDICAID, SELFPAY ==
[2020-01-16 14:08] VITALS: BMI 27.6
[2020-05-25 17:48] VITALS: BP 114/69; PULSE 80; TEMP 37.1
[2020-05-25 17:56] VITALS: BP 114/69; PULSE 80; TEMP 37.1
[2020-05-25 17:59] VITALS: BMI 27.9
--- NOTE | 2020-05-26 11:16 | OB.TRI.NOTE ---
History of Present Illness Was patient seen by the physician?: No Reason For Visit: DEREASED MOVEMENT Date of Service: 05/25/20 Final SRINIVASAN: 07/17/20 Final SRINIVASAN Source: US <20 weeks Gestational age: 32 Weeks and 3 Days History of Present Illness: 32+ week intrauterine presents to labor and delivery with decreased movement. Denies any vaginal bleeding or contractions. Allergies No Known Allergies Allergy (Verified 01/16/20 14:04) - Pertinent Past Medical History Medical History: Past Medical History (Last Updated 01/16/20 @ 14:01 by Edwina Klein) headache Surgical History: Past Surgical History (Last Updated 01/16/20 @ 14:07 by Edwina Klein) Achilles rupture Physical Exam Vitals: Vital Signs Temp Pulse BP 98.8 F 80 114/69 05/25/20 17:56 05/25/20 17:56 05/25/20 17:56 NST - FHR Rate Baby A NST Reactive:: Yes FHR Category:: Category I Impression/Plan 32+ week intrauterine with decreased movement. Reactive nonstress test and patient now feels baby moving. Will discharge to home with routine follow-up.
== END 2020-05-25 18:25 | disposition home or self-care (01) ==
LOC: WPOUT 17:35 → WP 17:35
PROVIDERS: PCP Internal Medicine; Visit Provider Obstetrics & Gynecology
DX: O36.8130 Decreased fetal movements, third trimester, not applicable or unspecified (principal); Z3A.32 32 weeks gestation of pregnancy
CPT/HCPCS: 59025; 59050; 99218; G0378

== ENCOUNTER → 2020-06-19 13:02 | Outpatient (CLI) | payer MEDICAID, SELFPAY ==
[2020-05-25 17:59] VITALS: BMI 27.9
== END ==
PROVIDERS: PCP Internal Medicine; Visit Provider Obstetrics & Gynecology
DX: Z36.85 Encounter for antenatal screening for Streptococcus B (principal)
CPT/HCPCS: 87081

== ENCOUNTER → 2020-06-26 12:26 | Outpatient (CLI) | payer MEDICAID, SELFPAY ==
[2020-06-26 14:36] LABS: AST(SGOT) 10 U/L (15-37); Alanine Aminotransfer ALT/SGPT 11 U/L (13-56); Albumin, Serum 2.5 g/dL (3.2-5.0); Alkaline Phosphatase 150 U/L (45-117); Bilirubin, Direct 0.08 mg/dL (0.00-0.30); Protein, Total 6.5 g/dL (6.4-8.2)
== END ==
PROVIDERS: PCP Internal Medicine; Visit Provider Obstetrics & Gynecology
DX: O26.893 Other specified pregnancy related conditions, third trimester (principal); L29.9 Pruritus, unspecified; Z3A.00 Weeks of gestation of pregnancy not specified
CPT/HCPCS: 36415; 80076

== ENCOUNTER 2020-07-10 07:10 | Inpatient (IN) | payer MEDICAID, SELFPAY ==
[2020-07-10] VITALS (21 sets, daily range): BP systolic 112–139; BP diastolic 57–86; PULSE 60–118; RESP 16; TEMP 36.4–37.2; O2SAT 98–100; BMI 28.7
[2020-07-10] MEDS: Lactated Ringers 1,000 ML 50 ML IV (07:40)
[2020-07-10 07:59] LABS: Absolute Lymphocyte Count 2.59 X10^3/uL (0.83-4.51); Absolute Neutrophil Count 7.4 X10^3/uL (2.0-7.7); Basophil# 0.03 X10^3/uL; Basophil% 0.3 % (0-1); Eosinophil# 0.13 X10^3/uL; Eosinophils% 1.2 % (0-5); Hematocrit 32.2 % (37-47); Hemoglobin 10.6 g/dL (12.0-15.0); Lymphocyte # 2.59 X10^3/ul (4.0); Lymphocyte % 23.8 % (19-41); Mean Corp Hgb Conc 32.9 g/dL (32-36); Mean Corpuscular Hgb 28.2 pg (27.0-32.0); Mean Corpuscular Volume 85.6 fL (81-99); Mean Platelet Vol. 11.1 fl (6.2-12.0); Monocyte# 0.67 X10^3/uL; Monocyte% 6.2 % (0-10); NRBC Flagged by Analyzer 0 % (0-5); Neutrophil # 7.38 X10^3/uL (2.7-7.7); Neutrophil % 67.9 % (47-70); Platelet Count 260 K/mm3 (150-450); RBC Distribution Width CV 13.2 % (11.6-14.6); RBC Distribution Width SD 40.5 fl (35.1-43.9); Red Blood Count 3.76 M/mm3 (4.2-5.4); White Blood Count 10.9 K/mm3 (4.4-11.0)
[2020-07-10] MEDS: Oxytocin 30 units/NS 500 ml 30 UNITS/500 ML IV.SOLN IV (08:08)
--- NOTE | 2020-07-10 08:33 | PCM.HP.OB ---
- Problem List (1) 39 weeks gestation of Status: Acute History Date of Admission: 07/10/20 Final SRINIVASAN: 07/17/20 Final SRINIVASAN Source: US <20 weeks Gestational age: 39 Weeks and 0 Days History of this : This is a 24 year-old, G [3], P [2001], at 39 weeks gestational age presenting for scheduled induction of labor Medical History: Medical History (Last Updated 07/10/20 @ 12:[address] Yolanda Baker MD) Anxiety and depression F41.9, F32.9 headache Surgical History: Surgical History (Last Updated 01/16/20 @ 14:07 by Edwina Klein) Achilles rupture S86.019A Allergies No Known Allergies Allergy (Verified 01/16/20 14:04) Home Medications: Home Medications Vits [Prenatabs FA ] 1 tab PO DAILY 03/14/18 Ondansetron HCl [Zofran] 4 mg PO PRN PRN 05/25/20 Venlafaxine HCl [Effexor Xr] 75 mg PO DAILY 07/10/20 Smoking Status: Never smoker Alcohol: None Number of Fetus(es): 1 NST - FHR Rate Baby A Baseline: 130 Variability:: Moderate Accelerations:: 15 x 15 Decelerations:: None NST Reactive:: Yes FHR Category:: Category I Uterine Activity:: 2/10 History Past Pregnancies: Past Pregnancies Delivery Date Name GA/ Weeks Route Wt Infant Sex Labor Length Anesthesia Delivery Location Provider FOB 03/15/18 Manohar 39 6lb9oz M 8 None [facility] Seals Howard 02/17/19 Mathews 39 6lb9oz F 24 Local [facility] Jose G Hesssh Labs: Mom's Microbiology 07/10/20 08:04 Mucosa - Nose SARS-CoV-2 Antigen (Rapid) - Final Mom[facility] Labs & Results 07/10/20 07/10/20 07:40 07:40 WBC 10.9 RBC 3.76 L Hgb 10.6 L Hct 32.2 L MCV 85.6 MCH 28.2 MCHC 32.9 RDW Std Deviation 40.5 RDW Coeff of Valentino 13.2 Plt Count 260 MPV 11.1 Immature Gran % (Auto) 0.600 Neut % (Auto) 67.9 Lymph % (Auto) 23.8 [place] % (Auto) 6.2 Eos % (Auto) 1.2 Baso % (Auto) 0.3 Absolute Neuts (auto) 7.4 Absolute Lymphs (auto) 2.59 Nucleated RBC % 0 Blood Type Pending Antibody Screen Pending Course Did the patient receive Yes care? Labs Blood Type: A RH: POSITIVE RPR/VDRL/Syphilis Nonreactive Rubella status Immune HbSAg Negative Date Done: 12/13/19 Chlamydia Negative Gonorrhea Negative HIV/AIDS Non-Reactive Group B Strep: Negative Current Obstetrical History Gestational Diabetes No Incompetent Cervix No Infertility No IUGR No Macrosomia No Hypertension/Pre-eclampsia No Placenta Previa/Abruption No PTL/PROM No Uterine anomaly No Oligohydramnios No Polyhydramnios No Multiple gestation No Past Medical History Asthma No Diabetes No Hypertension No Heart disease No Mitral valve prolapse No Neurologic/Seizure disorder/ No Migraines Kidney disease No Liver disease No Varicosities No Clotting disorders/Hx of DVT No Thyroid Dysfunction No Other medical diseases No Psychiatric disorders No: depression/anxiety Major trauma No Abnormal PAP smear No Sleep apnea No Mammogram in the last 2 years No Enter DETAILS of medical has not been treated for depression/anxiety history prior to this Medications Taken During Reason for taking medication [ stopped 2 months ago - started new med and will Prozac] find name of this Social History Marital Status: Alleged father Howard Lakhani Hx Smoking No Smoking Status Never smoker What date/time did you last reports taking something for depression now that use any of the above? has anxiety med with it - will get name of this from provider Expected Delivery Method: Spontaneous Vaginal Number of Visits: 12 Physical Exam Vitals: Vital Signs Pulse BP 71 115/76 07/10/20 07:32 07/10/20 07:32 General: Alert, Oriented x3, Cooperative, No apparent distress HEENT: Atraumatic, Normocephalic Cardiovascular: Regular rate, Regular Rhythm, Normal S1, Normal S2 Lungs: Normal air movement Abdomen: Soft, Non Tender, Non-Distended, Gravid Extremities:: No edema Neurological: Neuro grossly intact WELL TENDER: Normal external genitalia Estimated gestational size: Appropriate for gestational size Presentation: Cephalic Cervix Dilation (cm): 4 Station: -2 Effacement (%): 75 Assessment/Plan All Active Problems (Last Updated 01/16/20 @ 14:01 by Edwina Klein) 39 weeks gestation of (Acute) This is a 24 year-old, G [3], P [2002], at 39 weeks gestational age with Cat I FHR -Pitocin, amniotomy -Maternal and statuses reassuring
[2020-07-10] MEDS: Oxytocin 30 units/NS 500 ml 30 UNITS/500 ML IV.SOLN 334 UNITS IV (11:36)
--- NOTE | 2020-07-10 11:46 | PCM.OPRPT ---
Problem List (1) 39 weeks gestation of Status: Acute Vaginal Delivery Maternal Presentation: Active Labor Method of Induction: Pitocin, Amniotomy Amniotic Membrane Rupture Type: Spontaneous Amniotic Fluid Description: Clear Final SRINIVASAN: 07/17/20 Final SRINIVASAN Source: US <20 weeks Gestational age: 39 Weeks and 0 Days Date of Procedure: 07/10/20 Pre-Operative Diagnosis: 39wga Post-Operative Diagnosis: 39wga Surgery/ Procedure Performed: Spontaneous Vaginal Delivery Type of Anesthesia: None Description of Procedure: Arrived to room with Cat II FHR, moderate variability. SVE anterior lip, +1 station. Patient reported need to pushed and pushed over 2 contractions to deliver a vigorous female infant over an intact perineum. Nuchal cord x 2 reduced at the perineum. The infant was placed on the maternal abdomen and further attended by nursery personnel. The cord was doubly clamped and cut at approximately 5 minutes infant life. Sponge counts correct x 2. Presentation: Vertex Placental Delivery Description: Spontaneous Placenta Disposition: [facility] Cord Vessel Description: 3 Vessels Nuchal Cord Compression: Without compression Cord Entanglement: Around neck x 2, loose Estimated Blood Loss: 350mL Infant A gender: Female (1 minute): 9 (5 minute): 10 Episiotomy Description: None Laceration: None Medications given after delivery: IV Pitocin Complications: None
--- NOTE | 2020-07-10 11:52 | DCINST_ITS ---
Discharge Diet: No Restrictions Discharge Activity: Return to Normal Activity, May Shower, May Take a Tub Bath May resume sexual activity in: 4-6 weeks Lifting Restrictions: 20-25lb Call your doctor if you observe: Fever of 101 or Higher, Inability to urinate, Inability to have a bowel movement, Using more than one pad per hour, Shortness of breath, Chest pain, Calf discomfort, Uncontrolled pain Additional Instructions: If you experience any of the following, contact your healthcare provider. * Bleeding that soaks a pad every hour for 2 hours * Fever 100.4 or higher * Unrelieved incision or abdominal pain * Swelling, redness, discharge or bleeding from your incision or episiotomy site * Your incision begins to separate * Problems urinating (including inability to urinate or burning while urinating). * Visual changes * Severe headache * Flu-like symptoms * Pain or redness in one of both of your breasts * Pain, warmth, tenderness or swelling in your legs, especially the calf area * Frequent nausea and vomiting * Symptoms of depression or anxiety If you experience any of the following, call 911 or go to the nearest Emergency Room. * Chest pain * Problems breathing * Seizure activity * Partial or complete paralysis of a body part, slurred speech, weakness or drooping of the face, or a sudden inability to walk or hold your balance Allergies/Adverse Reactions: Allergies No Known Allergies Allergy (Verified 01/16/20 14:04) Medications to take at Discharge Vits [Prenatabs FA ] 1 tab PO DAILY 03/14/18 Ondansetron HCl [Zofran] 4 mg PO PRN PRN 05/25/20 Venlafaxine HCl [Effexor Xr] 75 mg PO DAILY 07/10/20 Please Follow Up With: Yolanda Diamond MD - in office or telehealth When: 2 weeks Please Follow Up With: Cordelia Sanchez DO When: 6 weeks Primary Care Physician: Toni Lim MD [Primary Care Provider] - Test Results: Test results from this visit will be discussed in further detail at your follow- up appointment, if applicable.
[2020-07-10] MEDS: Ondansetron 4 MG/2 ML Vial IV (13:22)
[2020-07-10] MEDS: 0.9 % NaCl (Sterile) Posiflush 10 mL IV (14:09)
[2020-07-10] MEDS: Venlafaxine XR 75 MG Capsule PO (14:09)
[2020-07-10] MEDS: Ibuprofen 600 MG Tablet PO ×2 (14:09→22:00)
--- NOTE | 2020-07-10 14:50 | NURSING ---
Pt. wanted to pass infant on about 40 min after delivery - reported she was just too tired to try to feed her and wanted dad to feed her. Pt. was very quiet from admission, and when she would talk, used a lot of sarcasm. Became more and more quiet as her labor progressed, and mostly told her if she needed anything. Her was also very quiet and very difficult to get any conversation from him as well. Pt. had reported that she was on Prozac at beginning of , and has been switched to Effexor and the dose increased. Had PPD after first delivery but hasn't been treated at all for this or anxiety until this . Pt. with very flat affect, and appears very tired. This is 3rd child, and oldest turned 1 in March. Pt. is compliant with nurse, but takes quite a bit of time and thought to answer even simple questions - even about pain or if she needs anything.
--- NOTE | 2020-07-10 19:04 | NURSING ---
Pt. became a lot more talkative throughout afternoon. Had baby book out to fill out info and was interactive with staff. Pt. holding infant, talking to her and clicking her tongue at her, gazing at her when nursing entered. Unsure of whether she wants to go home tomorrow or not, looking for for answer. Howard wants to go tomorrow, and she is agreeable. remains very supportive at bedside, having completed feeds today, very supportive for pt.
[2020-07-11 04:06] VITALS: BP 129/74; PULSE 60
[2020-07-11 04:10] VITALS: BP 129/74; PULSE 60; RESP 14; TEMP 37.1
[2020-07-11] MEDS: Ibuprofen 600 MG Tablet PO (07:54)
[2020-07-11 07:56] VITALS: BP 139/60; PULSE 59
[2020-07-11 08:02] VITALS: BP 139/60; PULSE 88; RESP 18; TEMP 36.8; O2SAT 97
--- NOTE | 2020-07-11 08:08 | PCM.PN.OB ---
Patient Problems: Active and Suspected Problems (Last Updated 07/10/20 @ 12:[address] Yolanda Baker MD) 39 weeks gestation of (Acute) Subjective: No complaints. Voiding without difficulty. Denies heavy lochia or significant pain. Formula feeding, but plans to do breastmilk and formula at home. She requests discharge home today. Objective: AVSS - Physical Exam Vitals/I&O's: Vital Signs Temp Pulse Resp BP Pulse Ox 98.2 F 88 18 139/60 H 97 07/11/20 08:02 07/11/20 08:02 07/11/20 08:02 07/11/20 08:02 07/11/20 08:02 Oxygen Delivery Method Room Air Weight: 68.9 kg Body Mass Index (BMI) 28.7 Intake and Output for Last 24 Hours 07/09/20 07/10/20 07/11/20 23:59 23:59 23:59 Intake Total 838.25 / 838.25 Balance 838.25 / 838.25 General: Alert, Oriented x3, Cooperative, No apparent distress HEENT: Atraumatic, Normocephalic Cardiovascular: Regular rate, Regular Rhythm, Normal S1, Normal S2 Abdomen: Soft, Non Tender, Non-Distended, - - Fundus firm and nontender, lochia moderate Extremities: No edema, No Calf Tenderness Neurological: Neuro grossly intact Psych/Mental Status: Normal Affect, Appropriate, Alert and oriented to time, place, person, mood and affect Microbiology Past 72 Hours 07/10/20 08:04 Mucosa - Nose SARS-CoV-2 Antigen (Rapid) - Final Laboratory Results 07/10/20 07:40: Blood Type A POSITIVE, Antibody Screen NEGATIVE Current Medications Acetaminophen (Acetaminophen 500 Mg Tablet) 500 - 1,000 mg PO Q6H PRN PRN PRN Reason: Pain Score 1-3 Ibuprofen (Ibuprofen 600 Mg Tablet) 600 mg PO Q6H PRN PRN PRN Reason: Pain 1-10 or Fever Last Admin: 07/11/20 07:54 Dose: 600 mg Documented by: Ondansetron HCl (Ondansetron 4 Mg/2 Ml Vial) 4 mg IV Q4H PRN PRN PRN Reason: NAUSEA Last Admin: 07/10/20 13:22 Dose: 4 mg Documented by: Multivit/Folic Acid/Iron ( Vits Tablet) 1 tablet PO DAILY@1200 LISSETTE Sodium Chloride (0.9 % Nacl (Sterile) Posiflush 10 Ml) 10 ml IV UD LISSETTE Last Admin: 07/10/20 14:09 Dose: 10 ml Documented by: Venlafaxine HCl (Venlafaxine Xr 75 Mg Capsule) 75 mg PO DAILY@1200 LISSETTE Last Admin: 07/10/20 14:09 Dose: 75 mg Documented by: Medical Necessity - Tobacco Use Smoking Status: Never smoker Assessment/Plan All Active Problems (Last Updated 07/10/20 @ 12:[address] Yolanda Baker MD) 39 weeks gestation of (Acute) This is a 24 year-old, G [3], P [3 PPD#1 s/p doing well. -Rh positive -Case management consultation pending, hx maternal depression, anxiety -d/c home later today
[2020-07-11] MEDS: Venlafaxine XR 75 MG Capsule PO (12:09)
[2020-07-11] MEDS: Prenatal Vits Tablet 1 TABLET PO (12:09)
[2020-07-11 12:14] VITALS: BP 119/76; PULSE 60; RESP 16; TEMP 36.6; O2SAT 98
[2020-07-11 12:15] VITALS: BP 119/76; PULSE 72
== END 2020-07-11 14:00 | disposition home or self-care (01) | DRG 560 ==
PROVIDERS: Admitting Provider Obstetrics & Gynecology; PCP Internal Medicine; Visit Provider Obstetrics & Gynecology
DX: O69.81X0 Labor and delivery complicated by cord around neck, without compression, not applicable or unspecified (principal); O99.344 Other mental disorders complicating childbirth; F32.9 Major depressive disorder, single episode, unspecified; F41.9 Anxiety disorder, unspecified; Z3A.39 39 weeks gestation of pregnancy; Z37.0 Single live birth
CPT/HCPCS: 59025; 85025; 86850; 86900; 86901; 87426; 99218; J7120; G0378; J2405

== ENCOUNTER 2020-10-09 04:36 | Emergency (ER) | payer MEDICAID, SELFPAY ==
[2020-07-10 08:12] VITALS: BMI 28.7
[2020-10-09 04:39] VITALS: BP 115/89; PULSE 80; RESP 16; TEMP 36.7; O2SAT 98; BMI 28.1
--- NOTE | 2020-10-09 04:42 | ED.VIS.GI ---
HPI HPI - GI History of Present Illness Chief Complaint: Abd Pain Informant: patient Abdominal Pain/Flank Pain Onset: Today Context: Gradual Onset Timing: Continuous Quality: Aching, Burning and Cramping Location: Epigastric and RUQ Current Severity: Mild Maximum Severity: Moderate Worsened by: Food Relieved by: Nothing Nausea/Vomiting/Emesis GI Symptom: Positive for Nausea Onset: Today Severity: Mild Narrative Narrative: The patient is a healthy 24-year-old female who presents to the emergency department abdominal pain. She states a few days ago, she had something similar but does not seem as painful. She states that tonight, at about 2 PM, she ate [employer]. She states 2 hours later, she woke with a stabbing pain in her right upper quadrant into the midepigastric area. She was nauseated without vomiting. She denies any fevers or chills. She has no history of abdominal surgery. She cannot recall any other food intolerances. She is otherwise been in her normal state of health. [facility] Medical History Anxiety and depression headache Home Medications venlafaxine 75 mg PO DAILY 07/10/20 [History Last Taken 07/08/20 12:00 75 mg] Allergy/AdvReac Type Severity Reaction Status Date / Time No Known Allergies Allergy Verified 10/09/20 04:37 Family History Mother Asthma Arthritis Sister Asthma Grandmother Cancer Brother Seizures Father Alcoholism Surgical History Achilles rupture Social History Smoking Status: Never smoker alcohol intake: never substance use type: does not use what type of physical activity do you participate in: walking frequency: 5-6 times per week ROS ROS ED Constitutional Constitutional ED: Denies chills or fever(s) Eyes Eyes: Denies blurry vision or change in vision ENT ENT ED: Denies ear pain or sore throat Cardiovascular Cardiovascular: Denies chest pain or palpitations Respiratory/Chest Respiratory/Chest: Denies cough, dyspnea or dyspnea on exertion Gastrointestinal Gastrointestinal: Reports abdominal pain and nausea; Denies vomiting Genitourinary Genitourinary ED: Denies dysuria or urinary frequency Musculoskeletal Musculoskeletal: Denies arthralgias or myalgias Integumentary Denies rash Neurologic Neurologic: Denies headache(s) or paresthesias Psychiatric Psychiatric: Denies anxiety or depression Endocrine Endocrinology: Denies polydipsia or polyuria Allergic/Immunologic Allergic/Immunologic ED: Denies urticaria EXAM Physical Exam Const Vital Signs: 10/09/20 04:39 Temperature 98.0 F Temperature Source Oral Pulse Rate 80 Respiratory Rate 16 Blood Pressure 115/89 H Blood Pressure Mean 97 Pulse Ox 98 Oxygen Delivery Method Room Air Positive well nourished and well developed General Appearance ED: well developed HEENT Reports normocephalic, head/scalp atraumatic and moist mucous membranes Eyes PERRL and EOMs intact bilaterally Neck no lymphadenopathy and supple General: Negative for tenderness Chest Wall inspection of chest normal Resp normal respiratory effort and clear to auscultation bilaterally Cardio regular rate, regular rhythm and no murmurs GI normal to inspection, nondistended, normoactive bowel sounds and non-distended Auscultation: normoactive bowel sounds Palpation: soft and tender epigastric and Viveros's sign (No Viveros sign); Negative for guarding or rebound tenderness present Back/Spine no CVA tenderness Cervical Spine: Negative for cervical spine tenderness Thoracic Spine / Upper Back: Negative for thoracic spinal tenderness Extremity normal to inspection General Extremety ED: Negative for tenderness Neuro oriented x3 and CN's II-XII intact bilaterally Neuro Narrative: No focal deficits appreciated. Sensorium / Orientation: alert Psych mental status grossly normal Skin no rashes or lesions noted, no wounds and skin turgor normal MDM MDM MDM Narrative Medical decision making narrative: Patient presents with right upper quadrant pain in the epigastric area. It happened 2 hours after eating. She really has no reproducible pain at this point. Clinically, I do feel that this is most consistent with biliary colic. I did do bedside ultrasound. The gallbladder wall was normal. There is no pericholecystic fluid. There was a lot of stones and sludge within the gallbladder. Patient had no pain directly over the gallbladder consistent with sonographic Viveros's. Patient was reassured. I did christian counselor her on dietary monitor and changes. However, given that she is young and already has some symptomatic gallstones I do feel that appropriate surgical follow-up is what she needs. The patient is comfortable with this plan of care and she will be discharged home. Lab Data Attestation: I reviewed the patient's lab results. Labs: Laboratory Results - last 24 hr 10/09/20 10/09/20 04:52 04:52 WBC 8.1 RBC 4.08 L Hgb 11.6 L Hct 35.5 L MCV 87.0 MCH 28.4 MCHC 32.7 RDW Std Deviation 44.4 H RDW Coeff of Valentino 13.9 Plt Count 278 MPV 10.0 Immature Gran % (Auto) 0.100 Neut % (Auto) 49.1 Lymph % (Auto) 41.4 H [place] % (Auto) 7.0 Eos % (Auto) 2.0 Baso % (Auto) 0.4 Absolute Neuts (auto) 4.0 Absolute Lymphs (auto) 3.37 Nucleated RBC % 0 Sodium 140 Potassium 3.3 L Chloride 104 Carbon Dioxide 30.0 Anion Gap 6 BUN 20 H Creatinine 0.89 Estim Creat Clear Calc 72.92 Est GFR (MDRD) Af Amer 99 Est GFR (MDRD) Non-Af 82 BUN/Creatinine Ratio 22.5 H Glucose 109 H Calcium 9.0 Total Bilirubin 0.20 AST 23 ALT 26 Alkaline Phosphatase 63 Total Protein 7.2 Albumin 3.8 Globulin 3.4 Albumin/Globulin Ratio 1.1 Lipase 129 Discharge Plan Triage Chief Complaint: Abd Pain ED Provider: Florencio Haq Dx/Rx/DC Orders Instructions: ED Gallstones with Biliary Colic Prescriptions: No Action venlafaxine 75 MG capsule,extended release 24hr 75 mg PO DAILY RF: 0 Primary Care Provider: Toni Lim Referrals: Toni Lim MD [Primary Care Provider] - Danyelle Chan MD [STAFF PHYSICIAN] - 3-5 Days
[2020-10-09] MEDS: 0.9% Normal Saline 1,000 ML 1000 ML IV (04:56)
[2020-10-09] MEDS: Ondansetron 4 MG/2 ML Vial IV (04:56)
[2020-10-09 04:59] LABS: Absolute Lymphocyte Count 3.37 X10^3/uL (0.83-4.51); Basophil# 0.03 X10^3/uL; Basophil% 0.4 % (0-1); Eosinophil# 0.16 X10^3/uL; Hematocrit 35.5 % (37-47); Hemoglobin 11.6 g/dL (12.0-15.0); Lymphocyte # 3.37 X10^3/ul (0.83-4.51); Lymphocyte % 41.4 % (19-41); Mean Corp Hgb Conc 32.7 g/dL (32-36); Mean Corpuscular Hgb 28.4 pg (27.0-32.0); Monocyte# 0.57 X10^3/uL; NRBC Flagged by Analyzer 0 % (0-5); Neutrophil % 49.1 % (47-70); Platelet Count 278 K/mm3 (150-450); RBC Distribution Width CV 13.9 % (11.6-14.6); RBC Distribution Width SD 44.4 fl (35.1-43.9); Red Blood Count 4.08 M/mm3 (4.2-5.4); White Blood Count 8.1 K/mm3 (4.4-11.0)
[2020-10-09 05:19] LABS: ALB/GLOB Ratio 1.1 RATIO (0.9-2.4); AST(SGOT) 23 U/L (15-37); Alanine Aminotransfer ALT/SGPT 26 U/L (13-56); Albumin, Serum 3.8 g/dL (3.2-5.0); Alkaline Phosphatase 63 U/L (45-117); Anion Gap 6 (5-15); BUN 20 mg/dL (7-18); BUN/Creat Ratio 22.5 RATIO (10-20); Chloride 104 mmol/L (98-107); Creatinine, Serum 0.89 mg/dL (0.55-1.02); EST Glomerular Filtration Rate 82 mL/min (>60); Est Glom Filt Rate - Afr Amer 99 mL/min (>60); Estimated Creatinine Clearance 72.92 ml/min; Globulin 3.4 g/dL (2.2-4.2); Glucose 109 mg/dL (74-106); Lipase 129 U/L (73-393); Potassium 3.3 mmol/L (3.5-5.1); Protein, Total 7.2 g/dL (6.4-8.2); Sodium Level 140 mmol/L (136-145)
== END 2020-10-09 05:38 | disposition home or self-care (01) ==
LOC: ED 05:26
PROVIDERS: Emergency Provider Emergency Medicine; PCP Internal Medicine
DX: K80.20 Calculus of gallbladder without cholecystitis without obstruction (principal); F32.9 Major depressive disorder, single episode, unspecified; F41.9 Anxiety disorder, unspecified; Z79.899 Other long term (current) drug therapy
CPT/HCPCS: 80053; 83690; 85025; 96361; 96374; 99283; J7030; A4216; J2405

== ENCOUNTER → 2020-10-23 07:50 | Outpatient (CLI) | payer MEDICAID, SELFPAY ==
[2020-10-16 15:11] VITALS: BMI 28.1
--- NOTE | 2020-10-23 07:51 | US_ITS ---
EXAM: US ABDOMEN LIMITED, RIGHT UPPER QUADRANT : 1995 CLINICAL INDICATION: abdominal pain TECHNIQUE: Real-time ultrasound of the right upper quadrant with image documentation. This report was created using [employer] report generation technology. COMPARISON: None. FINDINGS: LIVER: The liver measures 14.2 cm. There is normal echotexture. No intrahepatic biliary ductal dilation. GALLBLADDER: The gallbladder wall measures 1.5 mm. No shadowing gallstone. No pericholecystic fluid. Negative sonographic Viveros's sign. COMMON BILE DUCT: Common bile duct measures 4 mm. The proximal common bile duct is within normal limits for the patient's age. PANCREAS: Unremarkable as visualized. No focal abnormality is demonstrated in the pancreas. No pancreatic ductal dilatation. RIGHT KIDNEY: The right kidney measures 9.9 x 5.1 x 4.2 cm. There is no hydronephrosis. No shadowing calculus. No focal lesion or perinephric collection is demonstrated. US/Gallbladder IMPRESSION: No acute findings in the right upper quadrant. at 1347 Reported and signed by: Giuliano Dykes MD Electronically Signed: Giuliano Dykes MD at 13:46 EDT Tel , Service support ,
== END ==
PROVIDERS: PCP Internal Medicine; Referring Provider Surgery; Visit Provider Surgery
DX: R10.9 Unspecified abdominal pain (principal)
CPT/HCPCS: 76705

== ENCOUNTER → 2020-10-26 11:10 | Outpatient (CLI) | payer MEDICAID, SELFPAY ==
[2020-10-16 15:11] VITALS: BMI 28.1
--- NOTE | 2020-10-26 11:12 | NM_ITS ---
CLINICAL: 24-year-old female with reported history of right upper quadrant abdominal pain. RADIONUCLIDE HEPATOBILIARY SCINTIGRAPHY COMPARISON: Abdominal ultrasound report 10/23/2020 FINDINGS: Following the intravenous administration of 5.0 mCi of 99m Tc Mebrofenin, hepatobiliary images reveal: 1. Relatively prompt and homogeneous radiopharmaceutical concentration is noted by the hepatic parenchyma. The left lobe is prominent in size. No parenchymal defects are identified. 2. Gallbladder activity is identified at 15 minutes post radiopharmaceutical administration. 3. Small intestinal tract is observed at 45 minutes following tracer injection. 4. Washout of the radiopharmaceutical by the hepatic parenchyma appears qualitatively normal. Cholecystokinin (0.02 ug/kg) was administered intravenously over a 30-minute period. The post CCK gallbladder ejection fraction calculated at 20 minutes following Cholecystokinin administration was noted to be 95.0 % (normal greater than 35%). During 30 minutes of post CCK imaging, there is no scintigraphic evidence of reflux of the radiotracer into the common hepatic duct or refilling of the gallbladder. 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 TX/Hepatobilliary Img w/Pharm Int IMPRESSION: 1. A gallbladder ejection fraction calculated to be greater than 35% following the administration of Cholecystokinin makes the probability of functional hepatobiliary disease (gallbladder and/or sphincter of Oddi dyskinesia) and/or organic hepatobiliary disease (chronic acalculous cholecystitis and/or cystic duct syndrome) to be low. (Shala Garcia et al, Journal of Nuclear Medicine 32:1695, 1990). 2. There is scintigraphic evidence of post CCK duodenal-gastric reflux as defined above. (Di et al, Nucl Med Vanessa Anna Press pg. 35, 1980). Electronically Signed: Clifford Coates DO at 22:49 EDT Tel , Service support ,
== END ==
PROVIDERS: PCP Internal Medicine; Referring Provider Surgery; Visit Provider Surgery
DX: R10.11 Right upper quadrant pain (principal)
CPT/HCPCS: 78227; A9537; J2805

== ENCOUNTER → 2022-04-29 | Outpatient (CLI) | payer MEDICAID, SELFPAY ==
[2022-05-03 00:07] LABS: Chlamydia By Nucleic Acid AMP Negative (Negative)
[2022-05-04 14:42] LABS: Gonococcus By Nucleic Acid AMP Negative (Negative)
[2022-05-08 20:55] LABS: HPV Reflexed? NOT INDICATED
== END | disposition home or self-care (01) ==
LOC: LABSPEC 04-30 09:54
PROVIDERS: PCP Internal Medicine; Visit Provider Student in an Organized Health Care Education/Training Program
DX: Z34.81 Encounter for supervision of other normal pregnancy, first trimester (principal)
CPT/HCPCS: 87086; 87088; 87491; 87591; 88175; G0145